=== PATIENT | female | born 1990 | race Asian ===

== ENCOUNTER 2021-01-31 07:53 | Outpatient (CLI) | payer BC ==
--- NOTE | 2021-01-31 10:00 | XRAY Report ---
PROCEDURE: Chest 2 View X-Ray INDICATIONS: COUGH TECHNIQUE: 2 view(s) of the chest. COMPARISON: None. FINDINGS: Surgical changes and devices: None. Lungs and pleura: No pleural effusions or pneumothorax. Lungs are clear. Mediastinum: Mediastinal contours are normal. Heart size is normal. Bones and chest wall: No suspicious bony abnormalities. Soft tissues appear unremarkable. IMPRESSION: Normal for age, source of current symptoms is not seen. Reviewed by: Avery Lomeli MD on 01/31/2021 9:59 AM PDT Approved by: Avery Lomeli MD on 01/31/2021 9:59 AM PDT Station ID: [id number]
== END 2021-01-31 07:54 | disposition home or self-care (01) ==
LOC: DI.N 07:53
PROVIDERS: ATTEND Family Medicine
DX: R05 Cough (principal)

== ENCOUNTER 2023-09-13 09:51 | Outpatient (CLI) | payer BC ==
[2023-09-13 10:53] LABS: THYROID STIMULATING HORMONE 4.43 uIU/mL (0.34-5.60)
== END 2023-09-13 09:52 | disposition home or self-care (01) ==
LOC: LAB 09:51
PROVIDERS: ATTEND Physician Assistant
DX: G12.1 Other inherited spinal muscular atrophy (principal); E03.9 Hypothyroidism, unspecified; Z84.81 Family history of carrier of genetic disease; Z71.89 Other specified counseling
CPT/HCPCS: 36415; 84439; 84443; 84481

== ENCOUNTER 2024-03-29 13:16 | Outpatient (CLI) | payer BC ==
--- NOTE | 2024-03-29 16:56 | Ultrasound Report ---
PROCEDURE: Pelvic w/Transvaginal INDICATIONS: AUB TECHNIQUE: Real-time scanning was performed of the pelvic organs, with image documentation. Additional endovagi nal scanning was necessary due to incomplete visualization of the adnexal and endometrial structures by transabdominal scanning. COMPARISON: None. FINDINGS: Evaluation is limited secondary to body habitus/bowel gas. Uterus: Uterus is anteverted and normal in size at 9.2 x 3.2 x 3.4 cm. The myometrium is heterogene ous. The endometrium measures 10.5 mm in combined thickness. Cervix and vagina are within normal li mits. Ovaries: The right ovary measures 3.4 x 3.7 x 2.6 cm, with a calculated ovarian volume of 17.1 cc. The left ovary measures 2.6 x 1.6 x 2.9 cm, with a calculated ovarian volume of .3 cc. The ovaries h ave a normal sonographic appearance. Less than 12 follicles can be seen in each ovary. No adnexal m asses are seen. No cystic lesions measuring greater than 3 cm. Other: No pathologic free abdominal or pelvic fluid. IMPRESSION: Evaluation is limited secondary to body habitus/bowel gas. 1.Within these limitations, there is normal endometrial thickness of 10.5 mm. The uterine echotexture is heterogeneous. 2.Normal sonographic appearance of the bilateral ovaries. Reviewed by: Little Chua MD on 03/29/2024 4:54 PM PDT Approved by: Little Chua MD on 03/29/2024 4:54 PM PDT Station ID: [id number]
== END 2024-03-29 13:17 | disposition home or self-care (01) ==
LOC: DI 13:16
PROVIDERS: ATTEND Nurse Practitioner
DX: N93.9 Abnormal uterine and vaginal bleeding, unspecified (principal)